=== PATIENT | female | born 1990 | race Caucasian/White ===

== ENCOUNTER 2023-09-07 08:06 | Outpatient (CLI) | payer MEDICAID | END 2023-09-07 23:59 | disposition home or self-care (01) | LOC: RAD 08:06 | PROVIDERS: ATTEND Family Medicine | DX: J22 Unspecified acute lower respiratory infection (principal) | CPT/HCPCS: 71046 ==

== ENCOUNTER 2023-12-23 18:23 | Emergency (ER) | payer MEDICAID ==
[~2023-12-23] VITALS: Ht 165.1 cm; Wt 100.0 kg
[2023-12-23 18:25] VITALS: TEMP 98.6
[2023-12-23 19:19] LABS: BASOPHILS # (AUTO) 0.1 X10'3 (0-0.2); BASOPHILS % (AUTO) 0.9 % (0-1); EOSINOPHILS # (AUTO) 0.2 X10'3 (0-0.9); EOSINOPHILS % (AUTO) 1.1 % (0-6); HEMATOCRIT 40.2 % (35.0-45.0); HEMOGLOBIN 13.3 g/dl (12.0-16.0); LYMPHOCYTES # (AUTO) 3.4 X10'3 (1.1-4.8); LYMPHOCYTES % (AUTO) 26.2 % (21-51); MEAN CORPUSCULAR HEMOGLOBIN 29.6 PG (27.0-31.0); MEAN CORPUSCULAR HGB CONC 33.1 g/dL (33.0-36.5); MEAN CORPUSCULAR VOLUME 89.6 FL (78-98); MONOCYTES # (AUTO) 0.8 X10'3 (0-0.9); MONOCYTES % (AUTO) 5.9 % (2-12); NEUTROPHILS # (AUTO) 8.6 X10'3 (1.8-7.7); NEUTROPHILS % (AUTO) 65.9 % (42-75); PLATELET COUNT 275 X10'3 (140-440); RED BLOOD COUNT 4.49 X10'6 (4.20-5.60); RED CELL DISTRIBUTION WIDTH 13.7 % (11.5-14.5); WHITE BLOOD COUNT 13.1 X10'3 (4.5-11.0)
[2023-12-23 19:29] LABS: HCG SERUM QL POSITIVE
[2023-12-23 19:30] LABS: APTT 25 SECONDS (22-32); PROTHROMBIN TIME 10.1 SECONDS (9.0-12.0)
[2023-12-23 19:40] LABS: ALANINE AMINOTRANSFERASE 43 U/L (12-78); ALBUMIN 3.6 G/DL (3.4-5.0); ALKALINE PHOSPHATASE 111 IU/L (46-116); ANION GAP 8 (8-16); ASPARTATE AMINO TRANSFERASE 30 U/L (10-37); BILIRUBIN,TOTAL 0.4 MG/DL (0.1-1.0); BLOOD UREA NITROGEN 4 MG/DL (7-18); BUN/CREATININE RATIO 4.9 (10.0-20.0); CALCIUM 8.9 MG/DL (8.5-10.1); CHLORIDE 103 MMOL/L (99-107); CREATININE 0.81 MG/DL (0.40-0.90); GLUCOSE 98 MG/DL (70-104); POTASSIUM 3.5 MMOL/L (3.5-5.1); SODIUM 140 MMOL/L (135-145); TOTAL CARBON DIOXIDE 28.6 MMOL/L (24-32); TOTAL PROTEIN 7.3 G/DL (6.4-8.2); eCRCL 91 ML/MIN; eGFR 82 ML/MIN
[2023-12-23 19:49] LABS: BETA HCG,QUANTITATIVE 713 mIU/ml
[2023-12-23 23:21] VITALS: BP 118/74; PULSE 72; RESP 20; O2SAT 100
== END 2023-12-24 00:03 | disposition home or self-care (01) ==
LOC: ER 18:24
DX: O00.90 Unspecified ectopic pregnancy without intrauterine pregnancy (principal); R79.1 Abnormal coagulation profile
CPT/HCPCS: 36415; 76801; 76817; 80053; 84702; 84703; 85025; 85610; 85730; 99284

== ENCOUNTER 2023-12-30 18:08 | Emergency (ER) | payer MEDICAID ==
[~2023-12-30] VITALS: Ht 165.1 cm; Wt 99.0 kg
[2023-12-30 18:50] VITALS: BP 121/72; PULSE 92; RESP 15; TEMP 98.8; O2SAT 98
== END 2023-12-30 18:54 | disposition home or self-care (01) ==
LOC: ER 18:09
DX: O26.891 Other specified pregnancy related conditions, first trimester (principal)
CPT/HCPCS: 99281